=== PATIENT | male | born 1955 | race Caucasian/White ===

== ENCOUNTER 2017-09-24 14:38 | Outpatient (CLI) | payer MEDICARE, MEDICAID ==
--- NOTE | 2017-09-24 16:17 | RAD ---
CHEST PA AND LATERAL TWO VIEWS: History: 61-year-old male follow up abnormal chest x-ray from [facility]. Comparison: 02-18-17 FINDINGS: Heart size is normal. No acute confluent pneumonia, overt edema, or pleural effusion. Tiny slightly n odular changes seen on the prior [facility] study all appear stable. IMPRESSION: Stable appearing chest from [facility]. No significant acute intrathoracic disease. If there is clinical concern for evaluating for the possibility of small pulmonary nodules, follow up chest CT sc an might be of further benefit in evaluating that possibility. POS: [facility]
== END 2017-09-24 14:39 | disposition home or self-care (01) ==
LOC: MADRAD 14:38
PROVIDERS: ATTEND Physician Assistant
DX: R93.8 Abnormal findings on diagnostic imaging of other specified body structures (principal)
CPT/HCPCS: 71020

== ENCOUNTER 2018-02-15 05:28 | Emergency (ER) | payer MEDICARE, MEDICAID ==
[2018-02-15] MEDS ORDERED: Magnesium Sulfate 2 GM/NS 0.9% 50 ML BAG ONE (05:41)
[2018-02-15 06:07] LABS: Hemoglobin 13.7 g/dL (14.0-18.0); Mean Corpuscular HGB CONC 35.5 g/dL (32.0-36.0); Mean Corpuscular Volume 90.1 fl (80.0-94.0); Mean Platelet Volume 6.2 fL (7.4-10.4); Platelet Count 246 thou/uL (130-400); RBC Distribution Width 11.9 % (11.5-14.5); Red Blood Cell (RBC) Count 4.29 mill/uL (4.70-6.10); White Blood Cell (WBC) Count 15.7 thou/uL (4.8-10.8)
[2018-02-15 06:12] LABS: Band 14 % (5-11); MDiff Complete? YES
[2018-02-15 06:13] LABS: ALT (SGPT) 13 U/L (8-55); AST (SGOT) 16 U/L (5-34); Albumin 3.4 g/dL (3.4-4.8); Alkaline Phosphatase 68 U/L (40-150); Anion Gap 16 mmol/L (10-20); BUN (Urea Nitrogen) 9 mg/dL (8.4-25.7); Bilirubin, Total 0.5 mg/dL (0.2-1.2); Calc. Creatinine Clearance 0 mL/min (70-130); Carbon Dioxide 24 mmol/L (23-31); Chloride 105 mmol/L (98-107); Eosinophils 1 % (0-10); Estimated GFR-MDRD 52; Globulin 2.9 g/dL (2.4-3.5); Glucose 123 mg/dL (80-115); Lymphocytes 7 % (21-51); Monocytes 1 % (0-10); Neutrophil 77 % (42-75); Protein, Total 6.3 g/dL (5.8-8.1); Sodium 142 mmol/L (136-145)
[2018-02-15 06:17] LABS: Potassium 2.9 mmol/L (3.5-5.1)
[2018-02-15] MEDS ORDERED: Potassium Chloride 20 MEQ TAB ONE (06:21)
--- NOTE | 2018-02-15 08:55 | RAD ---
PORTABLE CHEST: Date: 02/15/18 HISTORY: Shortness of breath. FINDINGS: Lungs are clear. No infiltrate or vascular congestion. Heart and mediastinum unremarkable. IMPRESSION: Unremarkable chest. POS: [facility]
== END 2018-02-15 07:15 | disposition left against medical advice (07) ==
LOC: MADERS 05:28
DX: J44.1 Chronic obstructive pulmonary disease with (acute) exacerbation (principal); F32.9 Major depressive disorder, single episode, unspecified; F41.9 Anxiety disorder, unspecified; F17.200 Nicotine dependence, unspecified, uncomplicated; I10 Essential (primary) hypertension; Z79.899 Other long term (current) drug therapy
CPT/HCPCS: 36415; 71045; 80053; 85025; 96374; J1956; J3475; J7620

== ENCOUNTER 2020-04-18 09:54 | Emergency (ER) | payer MEDICARE, MEDICAID ==
[2020-04-18] MEDS ORDERED: Ibuprofen 800 MG TAB ONE (11:04)
[2020-04-18] MEDS ORDERED: Clindamycin 150 MG CAP ONE (11:04)
== END 2020-04-18 11:11 | disposition home or self-care (01) ==
LOC: MADERS 09:54
DX: L03.211 Cellulitis of face (principal); M54.41 Lumbago with sciatica, right side; I10 Essential (primary) hypertension; J44.9 Chronic obstructive pulmonary disease, unspecified; F41.9 Anxiety disorder, unspecified; F32.9 Major depressive disorder, single episode, unspecified; F17.210 Nicotine dependence, cigarettes, uncomplicated; Z79.82 Long term (current) use of aspirin; Z79.899 Other long term (current) drug therapy
CPT/HCPCS: 99283

== ENCOUNTER 2020-12-16 10:08 | Emergency (ER) | payer MEDICARE, MEDICAID ==
[2020-12-16] MEDS ORDERED: Morphine 4 MG/ML VIAL ONE (10:47)
[2020-12-16] MEDS ORDERED: Morphine 2 MG/ML VIAL ONE (10:47)
== END 2020-12-16 11:04 | disposition home or self-care (01) ==
LOC: MADERS 10:08
DX: R07.89 Other chest pain (principal); I10 Essential (primary) hypertension; J44.9 Chronic obstructive pulmonary disease, unspecified; F17.210 Nicotine dependence, cigarettes, uncomplicated; Z79.82 Long term (current) use of aspirin; Z79.51 Long term (current) use of inhaled steroids; Z79.899 Other long term (current) drug therapy
CPT/HCPCS: 96372; 99284; J2270